=== PATIENT | female | born 1995 | race Caucasian/White ===

== ENCOUNTER 2018-11-28 11:51 | Emergency (ER) | payer OTHER, MEDICAID ==
[2018-11-28] MEDS: KETOROLAC 60 MG INJ IM (14:03)
[2018-11-28] MEDS: ONDANSETRON (ODT) 4 MG TAB ODT (14:03)
== END 2018-11-28 14:42 | disposition home or self-care (01) ==
LOC: FTE 11:51
DX: R51 Headache (principal)
CPT/HCPCS: 81025; 96372; 99284-25